=== PATIENT | male | born 1940 | race Caucasian/White ===

== ENCOUNTER 2017-07-08 10:35 | Emergency (ER) | payer OTHER, MEDICARE ==
[~2017-07-08] VITALS: Ht 190.5 cm; Wt 102.2 kg
[2017-07-08 10:59] LABS: BASOPHILS % (AUTO) 0.7 % (0-1); EOSINOPHILS # (AUTO) 0.1 X10'3 (0-0.9); EOSINOPHILS % (AUTO) 1.5 % (0-6); HEMATOCRIT 41.1 % (42.0-52.0); HEMOGLOBIN 14.6 g/dl (14.0-17.9); LYMPHOCYTES % (AUTO) 32.2 % (21-51); MEAN CORPUSCULAR HEMOGLOBIN 34.2 PG (27.0-31.0); MEAN CORPUSCULAR HGB CONC 35.6 % (33.0-36.5); MEAN CORPUSCULAR VOLUME 95.9 FL (78-98); MEAN PLATELET VOLUME 7.9 FL (7.4-10.4); MONOCYTES # (AUTO) 0.6 X10'3 (0-0.9); MONOCYTES % (AUTO) 9.9 % (2-12); NEUTROPHILS # (AUTO) 3.5 X10'3 (1.8-7.7); NEUTROPHILS % (AUTO) 55.7 % (42-75); PLATELET COUNT 241 X10'3 (140-440); RED BLOOD COUNT 4.28 X10'6 (4.70-6.10); RED CELL DISTRIBUTION WIDTH 12.4 % (11.5-14.5); WHITE BLOOD COUNT 6.2 X10'3 (4.5-11.0)
[2017-07-08 11:10] LABS: INR 1.1 INR; PARTIAL THROMBOPLASTIN TIME 25 SECONDS (22-32); PROTHROMBIN TIME 10.9 SECONDS (9.0-12.0)
[2017-07-08 11:14] LABS: ALANINE AMINOTRANSFERASE 51 U/L (12-78); ALBUMIN 3.9 G/DL (3.4-5.0); ALBUMIN/GLOBULIN RATIO 1.3 (1.1-1.5); ALKALINE PHOSPHATASE 57 IU/L (46-116); ANION GAP 9 (8-16); ASPARTATE AMINO TRANSFERASE 39 U/L (10-37); BILIRUBIN,TOTAL 0.7 MG/DL (0.1-1.0); BLOOD UREA NITROGEN 10 MG/DL (7-18); BUN/CREATININE RATIO 13.3 (5.4-32.0); CALCIUM 9.8 MG/DL (8.5-10.1); CHLORIDE 99 MMOL/L (99-107); CREATININE 0.75 MG/DL (0.60-1.10); GLUCOSE 130 MG/DL (70-104); POTASSIUM 3.9 MMOL/L (3.5-5.1); SODIUM 134 MMOL/L (135-145); TOTAL CARBON DIOXIDE 26.1 MMOL/L (24-32); TOTAL PROTEIN 6.8 G/DL (6.4-8.2); eGFR > 90 ML/MIN
[2017-07-08 12:03] VITALS: BP 147/74
== END 2017-07-08 12:08 | disposition home or self-care (01) ==
LOC: ER 10:35
DX: M54.89 Other dorsalgia (principal); I10 Essential (primary) hypertension; E78.00 Pure hypercholesterolemia, unspecified; I25.2 Old myocardial infarction; Z95.1 Presence of aortocoronary bypass graft
CPT/HCPCS: 36415; 71045; 80053; 84484; 85025; 85610; 85730; 93005; 99285

== ENCOUNTER 2020-01-26 13:24 | Emergency (ER) | payer OTHER, MEDICARE ==
[~2020-01-26] VITALS: Ht 190.5 cm; Wt 110.0 kg
[2020-01-26 13:56] LABS: BASOPHILS % (AUTO) 0.5 % (0-1); EOSINOPHILS # (AUTO) 0.1 X10'3 (0-0.9); EOSINOPHILS % (AUTO) 1.8 % (0-6); HEMATOCRIT 39.8 % (42.0-52.0); HEMOGLOBIN 13.7 g/dl (14.0-17.9); LYMPHOCYTES # (AUTO) 1.3 X10'3 (1.1-4.8); LYMPHOCYTES % (AUTO) 18.8 % (21-51); MEAN CORPUSCULAR HEMOGLOBIN 34.2 PG (27.0-31.0); MEAN CORPUSCULAR HGB CONC 34.5 g/dL (33.0-36.5); MEAN CORPUSCULAR VOLUME 99.2 FL (78-98); MONOCYTES # (AUTO) 0.8 X10'3 (0-0.9); MONOCYTES % (AUTO) 11.7 % (2-12); NEUTROPHILS # (AUTO) 4.5 X10'3 (1.8-7.7); NEUTROPHILS % (AUTO) 67.2 % (42-75); PLATELET COUNT 228 X10'3 (140-440); RED BLOOD COUNT 4.01 X10'6 (4.70-6.10); RED CELL DISTRIBUTION WIDTH 12.6 % (11.5-14.5); WHITE BLOOD COUNT 6.7 X10'3 (4.5-11.0)
[2020-01-26 14:16] LABS: ALANINE AMINOTRANSFERASE 20 U/L (12-78); ALBUMIN 3.5 G/DL (3.4-5.0); ALBUMIN/GLOBULIN RATIO 1.1 (1.1-1.5); ALKALINE PHOSPHATASE 75 IU/L (46-116); ANION GAP 10 (8-16); ASPARTATE AMINO TRANSFERASE 18 U/L (10-37); BILIRUBIN,TOTAL 0.8 MG/DL (0.1-1.0); BLOOD UREA NITROGEN 6 MG/DL (7-18); CALCIUM 8.8 MG/DL (8.5-10.1); CHLORIDE 102 MMOL/L (99-107); CREATININE 0.67 MG/DL (0.60-1.10); GLUCOSE 108 MG/DL (70-104); POTASSIUM 4.2 MMOL/L (3.5-5.1); SODIUM 137 MMOL/L (135-145); TOTAL CARBON DIOXIDE 25.4 MMOL/L (24-32); TOTAL PROTEIN 6.6 G/DL (6.4-8.2); eGFR > 90 ML/MIN
[2020-01-26 17:55] VITALS: BP 167/87
== END 2020-01-26 18:00 | disposition home or self-care (01) ==
LOC: ER 13:25
DX: R07.89 Other chest pain (principal); I25.10 Atherosclerotic heart disease of native coronary artery without angina pectoris; E78.00 Pure hypercholesterolemia, unspecified; I10 Essential (primary) hypertension; I25.2 Old myocardial infarction; Z98.890 Other specified postprocedural states; Z72.89 Other problems related to lifestyle
CPT/HCPCS: 36415; 71045; 80053; 83880; 84484; 85025; 93005; 99285

== ENCOUNTER 2021-10-30 10:57 | Inpatient (IN) | payer OTHER, MEDICARE ==
[~2021-10-30] VITALS: Ht 190.5 cm; Wt 95.5 kg
[2021-10-30] MEDS ORDERED: mag hydrox/Alum hydrox/simeth 30ml oral suspension PO ONE (11:20)
[2021-10-30] MEDS ORDERED: sucralfate 1 gm tablet PO ONE (11:20)
[2021-10-30] MEDS ORDERED: LIDOcaine Viscous 15ml cup MM ONE (11:20)
[2021-10-30 11:36] LABS: BASOPHILS # (AUTO) 0.1 X10'3 (0-0.2); BASOPHILS % (AUTO) 0.6 % (0-1); EOSINOPHILS # (AUTO) 0.1 X10'3 (0-0.9); EOSINOPHILS % (AUTO) 0.6 % (0-6); HEMATOCRIT 49.1 % (42.0-52.0); HEMOGLOBIN 16.9 g/dl (14.0-17.9); LYMPHOCYTES # (AUTO) 1.3 X10'3 (1.1-4.8); LYMPHOCYTES % (AUTO) 12.6 % (21-51); MEAN CORPUSCULAR HEMOGLOBIN 33.9 PG (27.0-31.0); MEAN CORPUSCULAR HGB CONC 34.5 g/dL (33.0-36.5); MEAN CORPUSCULAR VOLUME 98.3 FL (78-98); MEAN PLATELET VOLUME 7.9 FL (7.4-10.4); MONOCYTES # (AUTO) 0.7 X10'3 (0-0.9); MONOCYTES % (AUTO) 6.7 % (2-12); NEUTROPHILS % (AUTO) 79.5 % (42-75); PLATELET COUNT 257 X10'3 (140-440); RED BLOOD COUNT 4.99 X10'6 (4.70-6.10); RED CELL DISTRIBUTION WIDTH 12.7 % (11.5-14.5); WHITE BLOOD COUNT 10.1 X10'3 (4.5-11.0)
[2021-10-30 11:55] LABS: ALANINE AMINOTRANSFERASE 58 U/L (12-78); ALBUMIN 3.7 G/DL (3.4-5.0); ALBUMIN/GLOBULIN RATIO 1.2 (1.1-1.5); ALKALINE PHOSPHATASE 109 IU/L (46-116); ANION GAP 8 (8-16); ASPARTATE AMINO TRANSFERASE 141 U/L (10-37); BILIRUBIN,TOTAL 2.7 MG/DL (0.1-1.0); BLOOD UREA NITROGEN 4 MG/DL (7-18); BUN/CREATININE RATIO 5.6 (5.4-32.0); CALCIUM 9.4 MG/DL (8.5-10.1); CHLORIDE 102 MMOL/L (99-107); CREATININE 0.72 MG/DL (0.60-1.10); GLUCOSE 110 MG/DL (70-104); POTASSIUM 3.8 MMOL/L (3.5-5.1); SODIUM 138 MMOL/L (135-145); TOTAL CARBON DIOXIDE 27.6 MMOL/L (24-32); TOTAL PROTEIN 6.9 G/DL (6.4-8.2); eGFR > 90 ML/MIN
[2021-10-30] MEDS ORDERED: nitroGLYCERIN 0.4mg SUBLingual tab SL PRN ×2 (12:10→15:50)
[2021-10-30] MEDS ORDERED: iohexol 350MG/ML 100ml bottle IV ONE ×2 (12:27→12:40)
--- NOTE | 2021-10-30 13:22 | NUR ---
pt eager to leave. reminded him we are waiting on test results. He didn't expect to be at the dr this long today.
[2021-10-30] MEDS ORDERED: ondansetron/PF 4mg/2ml inj IV ONE (13:35)
--- NOTE | 2021-10-30 13:40 | NUR ---
PT VOMITED CLEAR FLUID TWICE. PT IS MORE AGITATED. CONFUSED, PULLING ON LINES, NOT ANSWERING QUESTIONS. CHAVEZ SHEFFIELD DAUGHTER HAS BEEN AT BEDSIDE. PT BS IS 139
[2021-10-30] MEDS ORDERED: folic acid 1mg/0.2ml inj IV ONE (13:55)
[2021-10-30] MEDS ORDERED: LORazepam 2 mg/ml vial IV ONE (13:55)
[2021-10-30] MEDS ORDERED: thiamine 100mg/ml 2ml inj. IV ONE (13:55)
[2021-10-30] MEDS ORDERED: normal saline 1000ML IV soln IVB ONE ×2 (13:55→14:45)
--- NOTE | 2021-10-30 14:18 | NUR ---
TROP 107, INFORMED DARLING CASAS AND CLEO
[2021-10-30 14:19] LABS: LIPASE 16455 U/L (73-393)
--- NOTE | 2021-10-30 14:21 | NUR ---
PT BACK FROM CT AGITATED, WOULDN'T LAY ON THE TABLE. GAVE ATIVAN IN ROOM.
--- NOTE | 2021-10-30 14:24 | NUR ---
PT COMING IN. SHE IS 25MIN AWAY.
[2021-10-30] MEDS ORDERED: OLANZapine **IM** 10 mg inj. IM ONE (14:30)
--- NOTE | 2021-10-30 14:40 | NUR ---
ASSUMED CARE OF PATIENT. PT IS OX1, CLEO HUDSON AWARE. PULLING AT LINES AND ATTEMPTING TO GET OUT OF BED. ZYPREXA ADMINISTERED, WILL CONTINUE TO MONITOR.
[2021-10-30 14:41] LABS: ETHANOL < 0.010 GM/DL (0.0-0.010)
[2021-10-30] MEDS ORDERED: CefTRIAXone 2gm/D5W 50ml BAG 50 ML IV ONE (14:45)
[2021-10-30] MEDS ORDERED: LORazepam 2 mg/ml vial IV PRN (14:55)
[2021-10-30] MEDS ORDERED: magnesium Cl slow-release 64mg tablet PO PRN (14:55)
[2021-10-30] MEDS ORDERED: acetaminophen 325mg tablet PO PRN (14:55)
[2021-10-30] MEDS ORDERED: potassium CL 10mEq/100ml bag 100 ML IV PRN (14:55)
[2021-10-30] MEDS ORDERED: POTASSIUM BICARB 20meq eff tab 20 MEQ TABLET.EFF PO PRN ×2 (14:55)
[2021-10-30] MEDS ORDERED: mag hydrox/Alum hydrox/simeth 30ml oral suspension PO PRN (14:55)
[2021-10-30] MEDS ORDERED: magnesium 4gm in 100ml NS 100 ML IV PRN (14:55)
[2021-10-30] MEDS ORDERED: magnesium 2GM in 50ml NS 50 ML IV PRN (14:55)
[2021-10-30] MEDS ORDERED: ondansetron/PF 4mg/2ml inj IV PRN (14:55)
[2021-10-30] MEDS ORDERED: dextrose 50%-water 50ml dispensing syringe IV PRN (14:55)
[2021-10-30] MEDS ORDERED: haloperidol lactate 5mg/ml inj IM PRN (14:55)
[2021-10-30] MEDS ORDERED: morphine 2 MG/ML inj. syringe IV PRN ×2 (14:55)
[2021-10-30] MEDS ORDERED: magnesium hydroxide 30ml (MOM) UD suspension PO PRN (14:55)
[2021-10-30] MEDS ORDERED: acetaminophen 120MG suppository, rectal RC ONE (15:10)
--- NOTE | 2021-10-30 15:12 | NUR ---
CLEO HUDSON NOTIFIED OF TACHYPNEA AND FEVER. TYLENOL ORDERED. PT PLACED ON 2L NC FOR S02 89%.
[2021-10-30 15:22] LABS: MAGNESIUM 1.5 MG/DL (1.5-2.4)
[2021-10-30] MEDS ORDERED: CLOP75TA33 PO (15:36)
[2021-10-30] MEDS ORDERED: OMEG-156 PO (15:36)
[2021-10-30] MEDS ORDERED: CHOL100025 PO (15:36)
[2021-10-30] MEDS ORDERED: LIDO1ADH78 TOP (15:36)
[2021-10-30] MEDS ORDERED: ATEN-27 PO (15:36)
[2021-10-30] MEDS ORDERED: MELA3TAB39 PO (15:41)
[2021-10-30] MEDS ORDERED: TRIA15OI9 TOP (15:41)
[2021-10-30] MEDS ORDERED: LISI20TA28 PO (15:41)
[2021-10-30] MEDS ORDERED: NITR0.4T51 SL (15:41)
--- NOTE | 2021-10-30 15:42 | NUR ---
DAUGHTER AT BEDSIDE STATES PT HAS SOME DEMENTIA AND FREQUENTLY GETS MORE CONFUSED AND AGGRESSIVE AT NIGHT. SHE STATES THEY ARE UNABLE TO REDIRECT HIM AND HE WILL DO WHATEVER HE WANTS WHEN THIS HAPPENS.
[2021-10-30] MEDS: normal saline 1000ml 1,000 ML IV SCH (15:45)
--- NOTE | 2021-10-30 17:00 | NUR ---
To CT via [employer].
--- NOTE | 2021-10-30 17:16 | NUR ---
Back from CT at this time. Daughters at bedside.
--- NOTE | 2021-10-30 19:58 | NUR ---
contacted hospitalist Jordi in regards to patient. family advised me that patient self caths regularly and has not urinating since arriving in ED today. received order for catheter and UA. also obvious swelling noted to upper left extremity that family states was not present prior to ED. extremity shows no signs of IV use or infiltration. received order for vascular ultrasound to check for possible DVT.
[2021-10-30] MEDS: docusate sod 100mg capsule PO SCH (20:00)
[2021-10-30] MEDS: triamcinolone acetonide 0.1% ointment 15gm TP SCH (20:00)
[2021-10-30] MEDS: K and/or MAG REPLACEMENT MC SCH (20:00)
[2021-10-30] MEDS: lisinopril 20mg tablet PO SCH (20:00)
[2021-10-30 20:51] LABS: CLARITY,URINE CLEAR (Clear); COLOR,URINE YELLOW (Yellow); GLUCOSE, URINE NEGATIVE (Neg); KETONES,URINE 15 mg/dl (Neg); LEUKOCYTE ESTERASE ,URINE NEGATIVE (Neg); NITRITES, URINE NEGATIVE (Neg); OCCULT BLOOD,URINE TRACE-INTACT (Neg); PROTEIN,URINE TRACE mg/dl (Neg); UROBILINOGEN,URINE 0.2 E.U/dL (0.2-1.0)
[2021-10-30 20:55] LABS: UA COLLECTION TYPE STRAIGHT CATH
[2021-10-30 20:57] LABS: BACTERIA,URINE FEW /HPF (Neg); RBC,URINE 0-2 /HPF (0-2); SQUAMOUS EPITHELIAL CELL,UR FEW /LPF (FEW); WBC,URINE 0-4 /HPF (0-4)
[2021-10-30] MEDS: Melatonin 3mg tablet PO SCH (21:00)
[2021-10-30] MEDS: LORazepam 2 mg/ml vial IV PRN (21:01)
[2021-10-30] MEDS: enoxaparin 30mg/0.3ml syringe SQ SCH (21:01)
[2021-10-30] MEDS: thiamine 100mg/ml 2ml inj. IV SCH (21:01)
--- NOTE | 2021-10-30 21:58 | NUR ---
contacted Dr. Bacon to in regards to patients status. patient remains unresponsive, diaphoretic, and has been showing multiple PVCs on green ware caster. blood glucose obtained with physician bedside. received order for repeat CMP and was told to administer magnesium to assist with PVCs. Will continue to monitor patient. at this time will hold all oral medications. will call physician for IV med order to assist with vital signs.
[2021-10-30 22:38] LABS: ALANINE AMINOTRANSFERASE 95 U/L (12-78); ALBUMIN 3.4 G/DL (3.4-5.0); ALKALINE PHOSPHATASE 120 IU/L (46-116); ANION GAP 10 (8-16); ASPARTATE AMINO TRANSFERASE 164 U/L (10-37); BILIRUBIN,TOTAL 5.9 MG/DL (0.1-1.0); BLOOD UREA NITROGEN 8 MG/DL (7-18); BUN/CREATININE RATIO 10.1 (5.4-32.0); CALCIUM 8.6 MG/DL (8.5-10.1); CHLORIDE 103 MMOL/L (99-107); CREATININE 0.79 MG/DL (0.60-1.10); GLUCOSE 195 MG/DL (70-104); POTASSIUM 3.7 MMOL/L (3.5-5.1); SODIUM 141 MMOL/L (135-145); TOTAL CARBON DIOXIDE 27.7 MMOL/L (24-32); eGFR > 90 ML/MIN
[2021-10-30 22:59] LABS: ALBUMIN/GLOBULIN RATIO 1.2 (1.1-1.5); TOTAL PROTEIN 6.3 G/DL (6.4-8.2)
[2021-10-31] MEDS: normal saline 1000ml 1,000 ML IV SCH ×3 (01:10→20:55)
[2021-10-31] MEDS: piperacillin/tazo 3.375gm/50ml 50 ML IV SCH ×3 (01:11→16:36)
[2021-10-31 03:40] LABS: BASOPHILS % (AUTO) 0.1 % (0-1); EOSINOPHILS % (AUTO) 0 % (0-6); HEMATOCRIT 48.5 % (42.0-52.0); HEMOGLOBIN 16.7 g/dl (14.0-17.9); LYMPHOCYTES # (AUTO) 0.5 X10'3 (1.1-4.8); MEAN CORPUSCULAR HEMOGLOBIN 34.2 PG (27.0-31.0); MEAN CORPUSCULAR HGB CONC 34.5 g/dL (33.0-36.5); MEAN PLATELET VOLUME 8.2 FL (7.4-10.4); MONOCYTES # (AUTO) 0.6 X10'3 (0-0.9); MONOCYTES % (AUTO) 4.1 % (2-12); NEUTROPHILS # (AUTO) 14.5 X10'3 (1.8-7.7); NEUTROPHILS % (AUTO) 92.8 % (42-75); PLATELET COUNT 212 X10'3 (140-440); RED BLOOD COUNT 4.89 X10'6 (4.70-6.10); RED CELL DISTRIBUTION WIDTH 12.7 % (11.5-14.5); WHITE BLOOD COUNT 15.6 X10'3 (4.5-11.0)
[2021-10-31 03:49] LABS: ALANINE AMINOTRANSFERASE 90 U/L (12-78); ALBUMIN 3.2 G/DL (3.4-5.0); ALKALINE PHOSPHATASE 117 IU/L (46-116); ANION GAP 5 (8-16); ASPARTATE AMINO TRANSFERASE 127 U/L (10-37); BILIRUBIN,TOTAL 5.2 MG/DL (0.1-1.0); BLOOD UREA NITROGEN 11 MG/DL (7-18); BUN/CREATININE RATIO 15.1 (5.4-32.0); CALCIUM 8.2 MG/DL (8.5-10.1); CHLORIDE 104 MMOL/L (99-107); CREATININE 0.73 MG/DL (0.60-1.10); GLUCOSE 182 MG/DL (70-104); MAGNESIUM 2.2 MG/DL (1.5-2.4); POTASSIUM 4.2 MMOL/L (3.5-5.1); SODIUM 138 MMOL/L (135-145); TOTAL CARBON DIOXIDE 29.4 MMOL/L (24-32); eGFR > 90 ML/MIN
[2021-10-31 03:51] LABS: TOTAL PROTEIN 6.3 G/DL (6.4-8.2)
[2021-10-31] MEDS: LORazepam 2 mg/ml vial IV PRN (05:14)
[2021-10-31 07:10] VITALS: BP 152/79
[2021-10-31] MEDS: LIDOcaine 5% patch TP SCH (08:00)
[2021-10-31] MEDS: K and/or MAG REPLACEMENT MC SCH ×2 (08:00→20:00)
[2021-10-31] MEDS: docusate sod 100mg capsule PO SCH ×2 (08:00→20:00)
[2021-10-31] MEDS: lisinopril 20mg tablet PO SCH ×2 (08:00→20:00)
[2021-10-31] MEDS: cholecalciferol (vitamin D3) 1,000 unit (25mcg) tablet PO SCH (08:00)
[2021-10-31] MEDS: triamcinolone acetonide 0.1% ointment 15gm TP SCH ×2 (08:00→20:00)
[2021-10-31] MEDS: clopidogrel 75mg tablet PO SCH (08:00)
[2021-10-31] MEDS: enoxaparin 30mg/0.3ml syringe SQ SCH ×2 (08:00→23:06)
[2021-10-31] MEDS: folic acid 1mg/0.2ml inj IV SCH (08:00)
[2021-10-31] MEDS: OMEGA-3/DHA/EPA/FISH OIL 1 EACH CAPSULE.DR PO SCH (08:00)
[2021-10-31] MEDS: atenolol 25mg tablet PO SCH (08:00)
[2021-10-31] MEDS: thiamine 100mg/ml 2ml inj. IV SCH ×2 (10:19→13:00)
[2021-10-31 11:00] VITALS: BP 142/75
[2021-10-31 11:58] LABS: LIPASE 5387 U/L (73-393)
[2021-10-31 15:00] VITALS: BP 142/69
--- NOTE | 2021-10-31 17:48 | NUR ---
Contacted Dr. Kohli [id number] B.B. Ativan is not available can we change to diazepam?
[2021-10-31 18:00] VITALS: BP 153/70
--- NOTE | 2021-10-31 18:05 | NUR ---
Contacted Dr. [id number] B.B. can we have an order for soft restraints. Pt is pulling at lines and is combative with staff and family. Ivelisse DURÁN.
--- NOTE | 2021-10-31 18:05 | NUR ---
Recieved orders from Dr. Kohli. Will keep patient NPO, pt now in 2 point upper soft restraint, changed ativan to valium.
[2021-10-31] MEDS: diazepam inj 5 MG/ML inj. IV PRN ×2 (19:29→21:53)
[2021-10-31] MEDS: Melatonin 3mg tablet PO SCH (21:00)
[2021-10-31 22:00] VITALS: BP 155/86
[2021-10-31 23:33] LABS: ABG BASE EXCESS 2.1 mmol/L (-2.0-2.0); ABG HCO3 27.3 mmol/L (22.0-26.0); ABG OXYGEN SATURATION 91.6 % (94-97); ABG PCO2 (T) 43.1 mmHg (35.0-48.0); ABG PO2 (T) 58.9 mmHg (75.0-100.0); ALLEN'S TEST POSITIVE; FLOW 3 L/min; FMetHb 0.3 % (0.0-1.5); FO2Hb 90.4 % (94-97); PATIENT TEMPERATURE 36.5
[2021-11-01] MEDS: piperacillin/tazo 3.375gm/50ml 50 ML IV SCH ×2 (00:05→12:02)
[2021-11-01 02:00] VITALS: BP 163/74
[2021-11-01] MEDS: diazepam inj 5 MG/ML inj. IV PRN ×8 (02:20→22:36)
[2021-11-01] MEDS: thiamine 100mg/ml 2ml inj. IV SCH ×3 (02:58→15:12)
[2021-11-01 03:51] LABS: BASOPHILS % (AUTO) 0.1 % (0-1); EOSINOPHILS % (AUTO) 0 % (0-6); HEMATOCRIT 46.9 % (42.0-52.0); HEMOGLOBIN 15.8 g/dl (14.0-17.9); LYMPHOCYTES # (AUTO) 0.6 X10'3 (1.1-4.8); LYMPHOCYTES % (AUTO) 4.1 % (21-51); MEAN CORPUSCULAR HEMOGLOBIN 33.7 PG (27.0-31.0); MEAN CORPUSCULAR HGB CONC 33.6 g/dL (33.0-36.5); MEAN CORPUSCULAR VOLUME 100.3 FL (78-98); MEAN PLATELET VOLUME 8.5 FL (7.4-10.4); MONOCYTES # (AUTO) 0.8 X10'3 (0-0.9); MONOCYTES % (AUTO) 5.7 % (2-12); NEUTROPHILS % (AUTO) 90.1 % (42-75); PLATELET COUNT 212 X10'3 (140-440); RED BLOOD COUNT 4.68 X10'6 (4.70-6.10); WHITE BLOOD COUNT 14.5 X10'3 (4.5-11.0)
[2021-11-01 04:04] LABS: ALANINE AMINOTRANSFERASE 74 U/L (12-78); ALKALINE PHOSPHATASE 100 IU/L (46-116); ANION GAP 8 (8-16); ASPARTATE AMINO TRANSFERASE 163 U/L (10-37); BLOOD UREA NITROGEN 17 MG/DL (7-18); BUN/CREATININE RATIO 23.6 (5.4-32.0); CALCIUM 8.2 MG/DL (8.5-10.1); CHLORIDE 108 MMOL/L (99-107); CREATININE 0.72 MG/DL (0.60-1.10); GLUCOSE 156 MG/DL (70-104); MAGNESIUM 2.1 MG/DL (1.5-2.4); POTASSIUM 3.6 MMOL/L (3.5-5.1); SODIUM 143 MMOL/L (135-145); TOTAL CARBON DIOXIDE 27.4 MMOL/L (24-32); TOTAL PROTEIN 6.1 G/DL (6.4-8.2); eGFR > 90 ML/MIN
--- NOTE | 2021-11-01 05:47 | NUR ---
REVIEWED SYNTHETIC FILAMENT SPINNER ASSESSMENT AND IN AGREEMENT. PT HAS HAD LABORED BREATHING TONIGHT RR TO 40. CALLED DR FINNEY EARLIER AND RCVD AN ORDER FOR ABG'S. FAR LABS GO AND VITAL LOOKS OKAY BUT CONTINUES TO STRUGGLE WITH RESTRICTIONS.
[2021-11-01 06:00] VITALS: BP 137/74
--- NOTE | 2021-11-01 06:50 | NUR ---
Patient in room PCU 3023. I have received report from DARLING Marshall and had the opportunity to ask questions and assume patient care.
[2021-11-01] MEDS: normal saline 1000ml 1,000 ML IV SCH ×2 (06:55→08:00)
[2021-11-01] MEDS: K and/or MAG REPLACEMENT MC SCH (09:39)
[2021-11-01] MEDS: cholecalciferol (vitamin D3) 1,000 unit (25mcg) tablet PO SCH (09:40)
[2021-11-01] MEDS: OMEGA-3/DHA/EPA/FISH OIL 1 EACH CAPSULE.DR PO SCH (09:40)
[2021-11-01] MEDS: atenolol 25mg tablet PO SCH (09:40)
[2021-11-01] MEDS: docusate sod 100mg capsule PO SCH (09:40)
[2021-11-01] MEDS: clopidogrel 75mg tablet PO SCH (09:40)
[2021-11-01] MEDS: lisinopril 20mg tablet PO SCH (09:41)
[2021-11-01] MEDS ORDERED: furosemide 10 MG/1 ML 10ml inj IV ONE ×2 (09:50→12:15)
[2021-11-01 11:00] VITALS: BP 141/81
[2021-11-01] MEDS: enoxaparin 30mg/0.3ml syringe SQ SCH (12:02)
[2021-11-01] MEDS: LIDOcaine 5% patch TP SCH (12:03)
[2021-11-01] MEDS: folic acid 1mg/0.2ml inj IV SCH (13:36)
[2021-11-01 15:00] VITALS: BP 162/67
[2021-11-01] MEDS ORDERED: haloperidol lactate 5mg/ml inj IM ONE (16:45)
[2021-11-01] MEDS ORDERED: HYDROmorphone 1 mg/ml syringe IV ONE (16:45)
[2021-11-01] MEDS ORDERED: morphine 4 MG/ML inj SYRINge IV PRN (16:50)
[2021-11-01] MEDS ORDERED: morphine 10mg/0.5ml (conc. morphine) oral syringe PO PRN (16:50)
--- NOTE | 2021-11-01 18:00 | NUR ---
Restraints discontinued because pt is on comfort care as of 1649
--- NOTE | 2021-11-01 18:50 | NUR ---
Problems reprioritized. Patient report given, questions answered & plan of care reviewed with DARLING Carney.
--- NOTE | 2021-11-01 19:28 | NUR ---
Patient in room PCU 3023. I have received report from MARCO ANTONIO HASTINGS and had the opportunity to ask questions and assume patient care.
[2021-11-02] MEDS: diazepam inj 5 MG/ML inj. IV PRN (00:56)
--- NOTE | 2021-11-02 03:40 | NUR ---
PATIENT WHO IS DNR/CC WITH AND DAUGHTER AT BEDSIDE. HE AT 0340. DOCTOR SHARMIN AND PEANUT SHELLER NOTIFIED. AWAITING FOR [facility] TO MIGRATION AGENT THE .
--- NOTE | 2021-11-02 05:04 | NUR ---
RN IS TO DOCUMENT YES TO ALL APPLICABLE AREAS Pronouncement of : 1. Time Physician Notified: 2. Date of :11/02/2021 3. Time of :339 4. DNR/Withdraw life support documented:YES 5. Monitor strip has been placed on chart:YES 6. Assessment process is of one-minute duration and includes following criteria: a) Patient is unresponsive to all stimuli: YES b) Pupils fixed and non-reactive:YES c) Auscultation of precordium reveals absence of heart tones:YES d) Auscultation of lungs reveals absence of breath sounds:YES e) Absence of blood pressure / all vital signs:YES f) QRS complexes are not present on monitor / EKG strip:YES g) Pacer spikes without capture: 4. Comments:PATIENT WITH AND DAUGHTER AT BEDSIDE.
--- NOTE | 2021-11-02 05:18 | NUR ---
THE RELEASED TO [facility].
[2021-11-04] MEDS ORDERED: thiamine 100mg tablet PO SCH (08:00)
[2021-11-04] MEDS ORDERED: folic acid 1mg tablet PO SCH (08:00)
== END 2021-11-02 04:30 | DRG 871 ==
LOC: ER 10:57 → UNDOADMIN 14:58 → ED HOLD 14:58 → PCU 3S 10-31 07:11
PROVIDERS: ADMIT Family Medicine; ATTEND Family Medicine
PROC: B4201ZZ Computerized Tomography (CT Scan) of Abdominal Aorta using Low Osmolar Contrast (ICD-10-PCS; principal; 2021-10-30)
PROC: B4241ZZ Computerized Tomography (CT Scan) of Superior Mesenteric Artery using Low Osmolar Contrast (ICD-10-PCS; 2021-10-30)
PROC: B42H1ZZ Computerized Tomography (CT Scan) of Bilateral Lower Extremity Arteries using Low Osmolar Contrast (ICD-10-PCS; 2021-10-30)
PROC: B4211ZZ Computerized Tomography (CT Scan) of Celiac Artery using Low Osmolar Contrast (ICD-10-PCS; 2021-10-30)
DX: A41.9 Sepsis, unspecified organism (principal); G93.41 Metabolic encephalopathy; K85.20 Alcohol induced acute pancreatitis without necrosis or infection; I21.A1 Myocardial infarction type 2; F10.239 Alcohol dependence with withdrawal, unspecified; F10.29 Alcohol dependence with unspecified alcohol-induced disorder; Z66 Do not resuscitate; E78.00 Pure hypercholesterolemia, unspecified; F03.90 Unspecified dementia, unspecified severity, without behavioral disturbance, psychotic disturbance, mood disturbance, and anxiety; I10 Essential (primary) hypertension; I25.10 Atherosclerotic heart disease of native coronary artery without angina pectoris; I25.2 Old myocardial infarction; Z78.1 Physical restraint status; Z91.19 Patient's noncompliance with other medical treatment and regimen; Z95.1 Presence of aortocoronary bypass graft
CPT/HCPCS: 36415; 36600; 70450; 71045; 71275; 74174; 76700; 80053; 80320; 81001; 82140; 82803; 82948; 83690; 83735; 83880; 84132; 84145; 84484; 85018; 85025; 87081; 93971; 94760; 99291; 99292; A4338; A4615; G0378; J0696; J1170; J1630; J1650; J1940; J2060; J2270; J2405; J2543; J3360; J3411; J3475; J3490; J7030; J7040; Q9967